=== PATIENT | female | born 1950 | race Caucasian/White ===

== ENCOUNTER → 2016-03-22 | Day surgery (SDC) | payer MEDICARE, OTHER ==
[~2016-03-22] VITALS: Ht 165.1 cm; Wt 54.0 kg
[~2016-03-22] MED LIST: ACETAMINOPHEN/HYDROcodone 325 MG/10 MG TAB PO PRN; BUPIVACAINE HCL PF 0.5% 30 ML VIAL NB ONE; BUPIVACAINE HCL PF 0.5% 30 ML VIAL ONE; CEPH-460 PO; DEXAMETHASONE SOD PHOS 4 MG/ML VIAL ONE; DO NOT ADM ANY ANTICOAGULANT DRUGS XX PRN; ESCI10TA PO; FOLI1TAB4 PO; HYDR-3366 PO; INFL100P IV; INSULIN HUMAN REGULAR 1,000 UNITS/10 ML VIAL SQ PRN; KLON2TAB PO; LACTATED RINGER'S 1000 ML IV SCH; LEVO.15 PO; LIDOCAINE HCL 2% 50 ML VIAL ONE; LYRI50CA PO; MEPERIDINE HCL 50 MG/ML VIAL IM PRN; METH2.5T PO; METOPROLOL TARTRATE 25 MG TAB PO PRN; MIDAZOLAM HCL 5 MG/5 ML VIAL ONE; MULT-120 PO; NEOMYCIN/POLYMYXIN 1 ML G.U. IRRIGANT IR ONE; ONDANSETRON HCL 4 MG/2 ML VIAL IV PUSH ONE; PROPOFOL 200 MG/20 ML AMP IV ONE; SODIUM CHLORID 0.9% 500 ML IV SCH; ceFAZolin 1,000 MG/NS 100 ML IV SCH; ceFAZolin INJ 1,000 MG VIAL IV ONE; ePHEDrine/NS 50 MG/5 ML SYR IV ONE
[2016-03-22 07:10] VITALS: BP 135/62; PULSE 54; RESP 16; TEMP 98.1; O2SAT 100
[2016-03-22 07:20] LABS: BASOPHIL # 0.1 TH/MM3 (0-0.2); BASOPHIL % 1.1 % (0.0-2.0); EOSINOPHIL # 0.3 TH/MM3 (0-0.4); EOSINOPHIL % 7.5 % (0.0-4.0); HEMATOCRIT 35.1 % (35.0-46.0); HEMO FLAGS DIFF FINAL; LYMPH % 33.8 % (9.0-44.0); LYMPHOCYTE # 1.5 TH/MM3 (1.0-4.8); MEAN CELL VOLUME 95.4 FL (80.0-100.0); MEAN CORPUSCULAR HEMOGLOBIN 31.3 PG (27.0-34.0); MEAN CORPUSCULAR HGB CONC 32.8 % (32.0-36.0); MONO % 12.7 % (0.0-8.0); NEUT % 44.9 % (16.0-70.0); PLATELET COUNT 216 TH/MM3 (150-450); RED BLOOD COUNT 3.69 MIL/MM3 (4.00-5.30); RED CELL DISTRIBUTION WIDTH 16.8 % (11.6-17.2); WHITE BLOOD COUNT 4.5 TH/MM3 (4.0-11.0)
--- NOTE | 2016-03-22 10:47 | EKG ---
Date Performed: 03/22/2016 Time Performed: 06:52:52 PTAGE: 65 years EKG: SINUS BRADYCARDIA BORDERLINE ECG PREVIOUS TRACING : 04/02/2007 10.33 Compared to prior tracing no significant change DOCTOR: Valente Hahn Interpretating Date/Time 03/22/2016 10:46:14
[2016-03-22 13:21] VITALS: BP 139/57; PULSE 75; RESP 18; TEMP 97.6; O2SAT 98
--- NOTE | 2016-03-23 10:28 | MP ---
cc: FREEDOM SUBRAMANIAN III, M.D. DATE OF SURGERY 03/22/2016 PREOPERATIVE DIAGNOSIS Rheumatoid arthritis with right index, middle, ring and small finger MCP joint dislocations. PROCEDURE 1. Right index finger MCP joint silicone replacement Arthroplasty 2. Right middle finger MCP joint silicone replacement Arthroplasty 3. Right ring finger MCP joint replacement silicone arthroplasty 4. Right small finger MCP joint replacement silicone Arthroplasty 5. Use of image intensifier SURGEON Freedom Subramanian III, MD PROCEDURE The patient was brought to the operating room, placed supine on the operating table. After the correct site and side of surgery were verified by members of each team in the room multiple times including the patient and myself and after adequate preoperative markings and preoperative written consent were verified by everyone and after adequate preoperative time-out was performed to everyone's satisfaction and after adequate block of the right upper extremity was performed the right upper extremity was prepped and draped in the traditional sterile surgical fashion. The mini C-arm was used to confirm the site of the intended procedure. The limb was exsanguinated with an Jimi wrap. A highly placed, well-padded axillary tourniquet was inflated to 200 mmHg for a total of 120 minutes. A transversely oriented incision was over the necks of the metacarpals was made dorsally, carried down through skin and subcutaneous tissue. Dorsal veins were protected and retracted out of the way. Bipolar electrocautery was used as needed to control subcutaneous bleeders. Meticulous dissection of all the structures was then carried out next. The extensor tendons were all subluxed ulnarly. These were all freed and dissected free from the MCP joint capsules and retracted radially. The index finger MCP joint was addressed first. A longitudinal incision was then made over the dorsal aspect of the capsule and opened up. The radial collateral ligament was identified and protected for later repair. Each step was then repeated for the middle of the ring and then the small finger in a sequential fashion. The next step was sawing off the head of the metacarpal right where it started to flare out and this was done in a perpendicular fashion. Again, this was done stepwise for age finger. Thorough irrigation with saline was then done and this was performed approximately every five minutes throughout the entire case henceforth. The proximal phalangeal bases were then examined and were cleaned of any remaining cartilage which was minimal and then a bur was used to make an opening in the proximal cortex of the proximal phalangeal articular surface. The Barber silicone implants were used using first an awl and then sequentially increasing size trial broaches. The proximal phalanx was reamed and prepared followed by the metacarpal. Once all four fingers were done, thorough irrigation was performed again and then the size six implant was used for the second metacarpophalangeal joint. A size 6 silicone implant was used for the middle finger MCP joint. A size 5 implant was used for the ring finger MCP joint and a size 4 implant was used for the small finger MCP joint. Intrinsic release only had to be performed for the small finger, but all ulnar collateral ligaments seemed to be released for all the fingers. Prior to the placement of the implants, a drill hole using 0.035 cm K-wire was used on the radial side of the metacarpal and a 3-0 Ethibond suture was placed through this after the implants were seated. The radial collateral ligament of the MCP joint was then repaired down to this using a little bit of radially directed stress. Once this was done, the normal cascade of the fingers was restored. There was no further ulnar drift. All fingers were able to be flexed down 90 degrees at the MP joint and back out to full extension with no impingement or subluxation of the MP joints. Thorough irrigation was performed many times as stated. The capsules of the MP joints were then repaired using interrupted and running 3-0 Ethibond sutures. There was no gross subluxation of the tendons at this time and they were all centralized, but I still secured them with 3-0 Ethibond sutures radially and to the proximal phalangeal base with a few interrupted sutures to prevent any further subluxation. The axillary tourniquet was released prior to any closure and there was no evidence of any bleeding after pressure was held gently for a few minutes. Thorough irrigation was performed again. The skin edges were reapproximated using running 4-0 nylon suture. The final x-rays were obtained for the chart and showed all of the MP joints to be aligned. The hand and arm were thoroughly cleansed and dried with Betadine Adaptic dressings applied on top of the wound. Of note after the axillary tourniquet was released, the hand and all the fingers became immediately soft, pink and warm and had brisk capillary refill of less than two seconds. A well-padded, well molded large bulky splint was made in the usual fashion volarly keeping all four fingers almost completely extended at the MP joints. The patient was awakened from anesthesia and transported to the Post Anesthesia Care Unit awake and in stable condition at the end of the case. The sponge, needle and instrument counts were correct at the end of the case as reported by the nurses in the room. MD DEBBY Suh III/ARNEL /11:45 AM /10:01 AM
== END | disposition home or self-care (01) ==
LOC: HSDC 06:11
PROVIDERS: ATTEND Orthopaedic Surgery Hand Surgery
DX: M06.9 Rheumatoid arthritis, unspecified (principal); S63.269D Dislocation of metacarpophalangeal joint of unspecified finger, subsequent encounter; R94.31 Abnormal electrocardiogram [ECG] [EKG]
CPT/HCPCS: 01830; 26531; 64415; 76000; 85025; 93005; C1713; J0690; J1100; J2250; J2405; J7120